=== PATIENT | male | born 1975 | race Caucasian/White ===

== ENCOUNTER → 2020-08-11 08:04 | Outpatient (BNVA) | payer OTHER, SELFPAY | PROVIDERS: Visit Provider Surgery | DX: Z76.89 Persons encountering health services in other specified circumstances (principal) ==

== ENCOUNTER → 2020-09-07 08:08 | Outpatient (BNVA) | payer OTHER, SELFPAY | PROVIDERS: Visit Provider Surgery | DX: Z76.89 Persons encountering health services in other specified circumstances (principal) ==

== ENCOUNTER → 2020-10-19 08:23 | Outpatient (BNVA) | payer OTHER, SELFPAY | PROVIDERS: Visit Provider Surgery | DX: Z76.89 Persons encountering health services in other specified circumstances (principal) ==

== ENCOUNTER → 2020-11-16 08:28 | Outpatient (BNVA) | payer OTHER, SELFPAY | PROVIDERS: Visit Provider Surgery | DX: Z76.89 Persons encountering health services in other specified circumstances (principal) ==

== ENCOUNTER → 2020-12-25 08:25 | Outpatient (BNVA) | payer OTHER, SELFPAY | PROVIDERS: Visit Provider Surgery ==

== ENCOUNTER → 2021-01-27 08:11 | Outpatient (BNVA) | payer OTHER, SELFPAY | PROVIDERS: Visit Provider Surgery ==

== ENCOUNTER → 2021-03-08 08:22 | Outpatient (BNVA) | payer OTHER, SELFPAY | PROVIDERS: Visit Provider Surgery ==

== ENCOUNTER → 2021-05-19 07:23 | Outpatient (BNVA) | payer OTHER, SELFPAY | PROVIDERS: Visit Provider Surgery ==

== ENCOUNTER 2024-03-22 12:51 | Outpatient (AMB) | payer OTHER, SELFPAY ==
--- NOTE | 2024-03-22 12:55 | A.OFFVIS_ITS ---
VS Expanded 03/22/24 13:02 BP 152/98 H Blood Pressure Location Rt brachial Blood Pressure Position Sitting Pulse 100 Pulse Source Pulse Oximeter Temp 97.1 F Temperature Source Tympanic Pulse Oximetry 96 Oxygen Delivery Method Room Air Height 5 ft 9 in Weight 238 lb 6.4 oz BMI 35.2 Body Fat % 32.5 Body Fat Mass 77.4 Fat Free Mass 161.0 Visceral Fat Rating 15.0 Body Water % 48.7 Body Water Mass 116.0 Muscle Mass/Score 153.0 Basal Metabolic Rate/Score 2,198 Intake Visit Reasons: (OV) PO LSG 07/15/20 Polyethylene Combiner Required: No Allergies lisinopril [LISINOPRIL] Allergy (Unknown, Unverified 03/22/24 13:04) COUGH Lisinopril Allergy (Unknown, Uncoded 03/22/24 13:04) itching Medication List - Last Reconciled 03/22/24 by EDY Schwartz No Known Home Meds HPI Comments Details: Patient is a 48-year-old male who returns to the office today in follow-up. He is status post sleeve gastrectomy performed on 07/15/2020. He is approximately 3 years 8 months postoperative. He was last seen in May 2021. Weight at that time was 176.2 lb with a BMI of 25.9. Weight today is 238.4 lb with a BMI of 35.2. He states that he achieved a healthy weight back in 2020 and was doing well until he had a meniscal tear of his left knee last year. He has since undergone surgery and rehab and is now functioning better than he was prior to his ACL tear many years ago. no mvi Tries to get 120 gm protein per day, wakes 630 am, bed at 11 pm, dinner 530 meal plan: shake pure protein 1 scoop or celebrate 4 in 1 2 scoops in 8 oz 1 % milk or 3 eggs burger or protein and veg or pure protein bar chicken or protein and salad or veg not counting forks. drinking 60-80 oz daily or 10 12 oz selzers exercise plan: [id number] steps per day 10 flights stairs per day 2-3 x per week 2 mile walk no gym membership stationary bike and treadmill at home Any post op complications: none EDITH: never DM: never HTN: resolved Hyperlipidemia: never GERD:?0-5 scale ??0 = no symptoms ??1 = symptoms noticeable but not bothersome 2 =symptoms bothersome but not daily ? 3 = symptoms bothersome and daily 4 = symptoms affect daily activities 5 = symptoms are incapacitating, unable to do daily activities ? How bad is the heartburn: 0 ? Heartburn while lying down: 0 ? Heartburn when standing up: 0 ? Heartburn after meals: 0 ? Does heartburn change your diet: 0 ? Does heartburn wake you up from sleep: 0 ? Do you have difficulty swallowin ? Do you have pain with swallowin ? If you take medicine for your reflux, does this affect your daily life: 0 Satisfaction with present condition - satisfied or not satisfied: dissatisfied due to excess weight PFSH Medical History (Updated 11/16/20 @ 14:17 by Owen Garcia MD) Intestinal malabsorption Hypertension Surgical History (Updated 10/19/20 @ 11:06 by Owen Garcia MD) Hx of umbilical hernia repair History of arthroscopic knee surgery History of tooth extraction, class I edentulism Obesity History of sleeve gastrectomy Family History (Updated 08/11/20 @ 08:21 by Jacoby Polk CMA) Father HTN (hypertension) Diabetes Mother Obesity Son No problems noted. Son No problems noted. Son No problems noted. Social History (Updated 08/25/20 @ 14:25 by Jacoby Polk CMA) Alcohol intake: never Substance Use Type: Marijuana Review of Systems Const All systems reviewed & are unremarkable except as noted in HPI and below Physical Exam Const General: cooperative and no acute distress Orientation/consciousness: patient oriented x3 Resp Effort & Inspection: normal respiratory effort Auscultation: clear to auscultation bilaterally Cardio Rate: regular rate Rhythm: regular rhythm GI Inspection: Yes normal to inspection and Yes incision (well healed) Palpation (GI): Soft to palpation and no masses Neuro General: patient oriented x3 Assessment & Plan Assessment & Plan (1) Obesity: Code(s): E66.9 - Obesity, unspecified Category: Surgical Plan: We will start a new and more consistent meal plan. Celebrate 4 in 1 shakes, 1.5 scoops in 12 oz of unsweetened almond milk at 730- 930 and [id number] Zone perfect bar 2-4 Meal at 530 8 forks of protein and 8 forks of vegetables Another bar 8-10 Check yearly labs. Encouraged to get a multivitamin, 1 daily and calcium plus D every other day given the celebrate shake vitamin intake Discussed exercise, he has a treadmill and stationary bike at home, treadmill speed 3.2, incline 028. Stationary bike speed 12 mph, increasing decreasing resistance for a goal of 300 calories burned per day. Encouraged to text with any questions or concerns. Return to clinic 4-6 weeks. Orders: Orders Hemoglobin A1c Today E66.9 - Obesity, unspecified, I10 - Essential (primary) hypertension IRON PROFILE Today E66.9 - Obesity, unspecified, I10 - Essential (primary) hy pertension Vitamin B12 and Folate Today E66.9 - Obesity, unspecified, I10 - Essential (primary) hypertension Zinc Today E66.9 - Obesity, unspecified, I10 - Essential (primary) hypertension C Reactive Protein Today E66.9 - Obesity, unspecified, I10 - Essential (primary) hypertension Vitamin B1 Today E66.9 - Obesity, unspecified, I10 - Essential (primary) hypertension Vitamin A Today E66.9 - Obesity, unspecified, I10 - Essential (primary) hypertension Insulin Today E66.9 - Obesity, unspecified, I10 - Essential (primary) hypertension Complete Blood Count Auto Diff Today E66.9 - Obesity, unspecified, I10 - E ssential (primary) hypertension Lipid Panel Today E66.9 - Obesity, unspecified, I10 - Essential (primary) hypertension TSH reflex Free T4 Today E66.9 - Obesity, unspecified, I10 - Essential (primary) hypertension Ferritin Today E66.9 - Obesity, unspecified, I10 - Essential (primary) hypertension Vitamin D 25-OH Total Today E66.9 - Obesity, unspecified, I10 - Essential (primary) hypertension
[2024-03-22 13:02] VITALS: BP 152/98; PULSE 100; TEMP 36.2; O2SAT 96; BMI 35.2
== END 2024-03-22 13:37 | disposition home or self-care (01) ==
PROVIDERS: Visit Provider Physician Assistant Surgical
DX: E66.9 Obesity, unspecified (principal)
CPT/HCPCS: 99214

== ENCOUNTER → 2024-03-22 12:51 | Outpatient (BNVA) | payer OTHER, SELFPAY | PROVIDERS: Visit Provider Physician Assistant Surgical ==

== ENCOUNTER 2024-05-03 13:00 | Outpatient (AMB) | payer OTHER, SELFPAY ==
[2024-05-03 10:33] VITALS: BMI 34.1
--- NOTE | 2024-05-03 10:33 | A.OFFVIS_ITS ---
VS Expanded 05/03/24 10:33 Height 5 ft 9 in Weight 231 lb BMI 34.1 Body Fat % 34.1 Body Fat Mass 78.7 Fat Free Mass 152.4 Visceral Fat Rating 16 Body Water % 47.6 Body Water Mass 109.9 Muscle Mass/Score 144.6 Basal Metabolic Rate/Score 1,861 Intake Visit Reasons: (tV) PO LSG 07/15/20 Demand Generation Manager Required: No Allergies lisinopril [LISINOPRIL] Allergy (Unknown, Unverified 03/22/24 13:04) COUGH Lisinopril Allergy (Unknown, Uncoded 03/22/24 13:04) itching Medication List - Last Reconciled 05/03/24 by EDY Schwartz No Known Home Meds HPI Comments Details: Patient is a 48-year-old male who returns to the office today in follow-up. He is status post sleeve gastrectomy performed on 07/15/2020. He is approximately 3 years 10 months postoperative. Weight today is 231 lb with a BMI of 34.1. mendy ing bariatric fusion 1 daily and 1 khang + D, given vits in shakes. He has been following the meal plan, but did get off to a slow start. He has been following for the last 3 weeks. Feels the meal plan is difficult but can plan. meal plan: Celebrate 4 in 1 shakes, 1.5 scoops in 12 oz of unsweetened almond milk at 730- 930 and [id number] Zone perfect bar 2-4 Meal at 530 8 forks of protein and 8 forks of vegetables Another bar 8-10 drinking 128 oz water/crystal light exercise plan: 1140-6626 khang per week. outdoor walking [facility] Medical History (Updated 11/16/20 @ 14:17 by Owen Garcia MD) Intestinal malabsorption Hypertension Surgical History (Updated 10/19/20 @ 11:06 by Owen Garcia MD) Hx of umbilical hernia repair History of arthroscopic knee surgery History of tooth extraction, class I edentulism Obesity History of sleeve gastrectomy Family History (Updated 08/11/20 @ 08:21 by Jacoby Polk CMA) Father HTN (hypertension) Diabetes Mother Obesity Son No problems noted. Son No problems noted. Son No problems noted. Social History (Updated 08/25/20 @ 14:25 by Jacoby Polk [facility]) Alcohol intake: never Substance Use Type: Marijuana Telehealth Telehealth Telehealth Platform: Telephone Location of provider rendering services: other Location of patient: address on file Patient Identification confirmed using: Name, : Yes Telehealth method: voice only Patient verbally consented to treatment: Yes Patient verbally consented to billing insurance company: Yes Patient informed of any privacy concerns related to visit: Yes Minutes spent on Phone/Video with Pt.: 18 Assessment & Plan Assessment & Plan (1) Obesity: Code(s): E66.9 - Obesity, unspecified Category: Surgical Plan: Now making good progress. We will continue to text with any questions or concerns. He did mistake his meal plans slightly using 6 forks protein and 6 forks vegetables. Now that he is lost some weight, this is the appropriate amount. He will continue. We did make the suggestion to decrease his water intake to decrease overall volume within the stomach from 128 oz to 96 oz. follow-up in the office for his 4 year follow-up.
== END 2024-05-03 13:25 | disposition home or self-care (01) ==
LOC: HO.HBS 13:20
PROVIDERS: Visit Provider Physician Assistant Surgical
DX: E66.9 Obesity, unspecified (principal); Z68.34 Body mass index [BMI] 34.0-34.9, adult; Z98.84 Bariatric surgery status
CPT/HCPCS: 99442

== ENCOUNTER → 2024-05-03 13:00 | Outpatient (BNVA) | payer OTHER, SELFPAY | PROVIDERS: Visit Provider Physician Assistant Surgical | DX: E66.9 Obesity, unspecified (principal); I10 Essential (primary) hypertension ==

== ENCOUNTER 2024-07-15 08:28 | Outpatient (AMB) | payer OTHER, SELFPAY ==
--- NOTE | 2024-07-15 08:30 | MHC.OFFVISWM ---
VS Expanded 07/15/24 08:36 BP 144/98 H Blood Pressure Location Rt brachial Blood Pressure Position Sitting Pulse 78 Pulse Source Pulse Oximeter Temp 96.1 F L Temperature Source Temporal Artery Scan Pulse Oximetry 100 Oxygen Delivery Method Room Air Height 5 ft 9 in Weight 226 lb BMI 33.4 Body Fat % 31.1 Body Fat Mass 70.4 Fat Free Mass 155.6 Visceral Fat Rating 16.0 Body Water % 48.8 Body Water Mass 110.2 Muscle Mass/Score 148.0 Basal Metabolic Rate/Score 2,101 Intake Visit Reasons: (OV) PO LSG 07/15/20 Chief Contract Officer Required: No Allergies lisinopril [LISINOPRIL] Allergy (Unknown, Unverified 07/15/24 08:39) COUGH Lisinopril Allergy (Unknown, Uncoded 07/15/24 08:39) itching Medication List - Last Reconciled 07/15/24 by EDY Schwartz No Known Home Meds HPI Comments Details: Patient is a 48-year-old male who returns to the office today in follow-up. He is status post sleeve gastrectomy performed on 07/15/2020. He is approximately 4 years postoperative. Weight today is 231 lb with a BMI of 34.1. taking bariatric fusion 1 daily and 1 khang + D, given vits in shakes. He has been following the meal plan, but did get off to a slow start. He has been following for the last 3 weeks. Feels the meal plan is difficult but can plan. meal plan: Celebrate 4 in 1 shakes, 1.5 scoops in 12 oz of unsweetened almond milk at 730-930 and [id number] Zone perfect bar 2-4 Meal at 530 6 forks of protein and 6 forks of vegetables Another bar 8-10 drinking 96 oz water/crystal light exercise plan: 0100-8131 khang per week. outdoor walking Any post op complications: none EDITH: never DM: never HTN: resolved Hyperlipidemia: never GERD:?0-5 scale ??0 = no symptoms ??1 = symptoms noticeable but not bothersome 2 =symptoms bothersome but not daily ? 3 = symptoms bothersome and daily 4 = symptoms affect daily activities 5 = symptoms are incapacitating, unable to do daily activities ? How bad is the heartburn: 0 ? Heartburn while lying down: 0 ? Heartburn when standing up: 0 ? Heartburn after meals: 0 ? Does heartburn change your diet: 0 ? Does heartburn wake you up from sleep: 0 ? Do you have difficulty swallowin ? Do you have pain with swallowin ? If you take medicine for your reflux, does this affect your daily life: 0 Satisfaction with present condition - satisfied or not satisfied: dissatisfied [facility] Medical History Intestinal malabsorption Hypertension Surgical History Hx of umbilical hernia repair History of arthroscopic knee surgery History of tooth extraction, class I edentulism Obesity History of sleeve gastrectomy Family History Father HTN (hypertension) Diabetes Mother Obesity Son No problems noted. Son No problems noted. Son No problems noted. Social History Alcohol intake: never Substance Use Type: Marijuana Physical Exam Vital Signs: Last Vital Signs Temp 96.1 F L 07/15/24 08:36 Pulse 78 07/15/24 08:36 BP 144/98 H 07/15/24 08:36 Pulse Ox 100 07/15/24 08:36 Oxygen Delivery Method Room Air 07/15/24 08:36 BMI result Body Mass Index 33.4 Const General: cooperative and no acute distress Orientation/consciousness: patient oriented x3 Resp Effort & Inspection: normal respiratory effort Auscultation: clear to auscultation bilaterally Cardio Rate: regular rate Rhythm: regular rhythm GI Inspection: Yes normal to inspection and Yes incision (well healed) Palpation (GI): Soft to palpation and no masses Neuro General: patient oriented x3 Assessment & Plan Assessment & Plan (1) Obesity: Code(s): E66.9 - Obesity, unspecified Category: Surgical Plan: Able to identify barriers to his success including indulgence is in alcohol and Rich meals. He has been somewhat inconsistent with his meal plan. Now identifying this he wishes to commit to a more structured and disciplined lifestyle. Gave him the right [employer] joyce and instructions. We will have him return to the office in 2 months. Discussed the importance of consistent exercise and consistent meal plan. Encouraged to text with his weight is as well as with any questions or concerns. Reminded to get labs done that were ordered in March.
[2024-07-15 08:36] VITALS: BP 144/98; PULSE 78; TEMP 35.6; O2SAT 100; BMI 33.4
== END 2024-07-15 09:22 | disposition home or self-care (01) ==
PROVIDERS: Visit Provider Physician Assistant Surgical
DX: E66.9 Obesity, unspecified (principal)
CPT/HCPCS: 99214

== ENCOUNTER → 2024-07-15 08:28 | Outpatient (BNVA) | payer OTHER, SELFPAY | PROVIDERS: Visit Provider Physician Assistant Surgical | DX: E66.9 Obesity, unspecified (principal); I10 Essential (primary) hypertension ==